=== PATIENT | female | born 1945 | race African-American/Black ===

== ENCOUNTER 2019-04-25 00:40 | Emergency (ER) | payer OTHER ==
[~2019-04-25] VITALS: Ht 162.5 cm; Wt 86.2 kg
[2019-04-25] MEDS ORDERED: METFORMIN XR500 MG PO (00:54)
[2019-04-25] MEDS ORDERED: ATORVASTATIN CA80 M1 PO (00:54)
[2019-04-25] MEDS ORDERED: BENICAR HCT 401 EAC1 PO (00:57)
[2019-04-25] MEDS ORDERED: MEDROL DOSEPAK4 MG PO (01:33)
== END 2019-04-25 01:47 | disposition home or self-care (01) ==
LOC: ED 00:40
DX: J45.20 Mild intermittent asthma, uncomplicated (principal); E11.9 Type 2 diabetes mellitus without complications; I10 Essential (primary) hypertension; E78.00 Pure hypercholesterolemia, unspecified; Z88.6 Allergy status to analgesic agent; Z79.899 Other long term (current) drug therapy